=== PATIENT | female | born 1985 | race Caucasian/White ===

== ENCOUNTER 2020-12-09 10:45 | Inpatient (IN) | payer OTHER, SELFPAY ==
[2020-12-09] VITALS (21 sets, daily range): BP systolic 108–152; BP diastolic 49–98; PULSE 73–109; RESP 15–18; TEMP 35.8–37.3; O2SAT 95–100; BMI 31.8
[2020-12-09] MEDS: Lactated Ringers 1,000 ML 999 ML IV (10:45)
[2020-12-09 11:02] LABS: Hematocrit 40.4 % (37-47); Hemoglobin 13.6 g/dL (12.0-15.0); Mean Corp Hgb Conc 33.7 g/dL (32-36); Mean Corpuscular Hgb 29.6 pg (27.0-32.0); Mean Platelet Vol. 10.1 fl (6.2-12.0); Platelet Count 358 K/mm3 (150-450); RBC Distribution Width SD 44.5 fl (35.1-43.9); Red Blood Count 4.59 M/mm3 (4.2-5.4); White Blood Count 14.6 K/mm3 (4.4-11.0)
[2020-12-09 11:15] LABS: Bedside Glucose 85 mg/dL (70-110)
[2020-12-09 11:16] LABS: AST(SGOT) 18 U/L (15-37); Alanine Aminotransfer ALT/SGPT 22 U/L (13-56); Creatinine, Serum 0.64 mg/dL (0.55-1.02); EST Glomerular Filtration Rate 113 mL/min (>60); Est Glom Filt Rate - Afr Amer 137 mL/min (>60); Estimated Creatinine Clearance 137.13 ml/min; LDH 193 U/L (84-246); Uric Acid 4.3 mg/dL (2.6-6.0)
[2020-12-09 11:30] LABS: International Normalized Ratio 0.9; Prothrombin Time (Protime)PT. 11.6 SECONDS (11.7-14.9)
[2020-12-09 11:31] LABS: Fibrinogen 556 mg/dl (203-444); Partial Thromboplast Time 24.6 Seconds (24.1-36.2)
[2020-12-09] MEDS: Sodium Citrate/Citric Acid 30 ML UDC PO (11:42)
[2020-12-09] MEDS: Acetaminophen 500 MG Tablet 1000 MG PO ×2 (11:45→18:42)
[2020-12-09] MEDS: Cefazolin 2 GM in 0.9% Normal Saline 100 ML IV (11:50)
--- NOTE | 2020-12-09 12:05 | PCM.HP.OB ---
HPI - General General Date of Admission: 12/09/20 HPI Narrative MAURILIO KIDD, is a 35 high risk level 1 para 0 who presents at 39-5/7 weeks gestation complaining contractions. The contractions that started at 4 AM and got more more intense. She arrived to labor and delivery. She denied any vaginal bleeding or leaking of fluid. She denies headache or visual changes. Maternal Data Information Final ALDO: 12/11/20 Final ALDO Source: [place] <20 weeks Gestational age: 39 5/7 [facility] Medical History (Updated 12/09/20 @ 12:[address] Ling Espinoza MD) Depression Gestational diabetes Home Medications [id number] fumarate-FA [] tab PO 12/09/20 [History Last Taken 12/08/20] Allergy/AdvReac Type Severity Reaction Status Date / Time aspirin Allergy Other Verified 12/09/20 09:42 Family History (Updated 12/09/20 @ 11:10 by Anne Marie Wilkes) Sister Mental developmental delay Social History Smoking Status: Never smoker History Elective abortions Hx Para 0 Spontaneous abortions Hx # Term Pregnancies Ectopic pregnancies Hx # Pregnancies Multiple births # of living children NST FHR Rate Baby A Baseline: normal Variability:: Moderate Accelerations:: 15 x 15 Decelerations:: Variable (for up to 90 sec. Michael in 60s-80s at times) FHR Category:: Category II Uterine Activity:: ctxs q 3-5 min ROS Constitutional Constitutional: Denies fatigue, fever(s) or malaise Eyes Eyes: Denies change in vision ENT HEENT: Denies dizziness or headache(s) Cardiovascular Cardiovascular: Denies chest pain, dyspnea or lightheadedness Respiratory/Chest Respiratory/Chest: Denies cough or dyspnea Gastrointestinal Gastrointestinal: Denies change in bowel habits Genitourinary Genitourinary: Denies burning urination or genital lesions Integumentary Integumentary: Denies rash Neurologic Neurologic: Denies confusion, dizziness, headache(s), numbness or weakness Vital Signs Vital Signs Vital Signs: 12/09/20 09:32 12/09/20 09:47 12/09/20 10:02 Pulse Rate 93 90 87 Blood Pressure 144/98 H 122/70 H 134/88 H BP Systolic 144 122 134 BP Diastolic 98 70 88 12/09/20 11:27 12/09/20 11:42 Pulse Rate 109 H 104 H Blood Pressure 152/92 H 138/83 H BP Systolic 152 138 BP Diastolic 92 83 Weight Weight: 103.419 kg Body Mass Index (BMI) 31.8 Physical Exam Const alert and no apparent distress General Appearance: cooperative HEENT normocephalic Resp normal respiratory effort Cardio regular rate GI soft to palpation GI Narrative: gravid, nontender, appropriate for gestational age Extremity no calf tenderness General Extremity: edema Skin no wounds Rashes: No rashes noted Psych activity/motor behavior normal Labs Labs Labs: Blood Type Pending Antibody Screen Pending Hct 40.4 % (37-47) Hgb 13.6 g/dL (12.0-15.0) Assessment & Plan (1) 39 weeks gestation of : (2) High-risk , primigravida of advanced maternal age: (3) Variable heart rate decelerations, antepartum: PLAN: Risk benefits and alternatives and personnel involved to primary section were discussed with the patient, her questions were answered to her satisfaction and she desired to proceed. Her partner was present in the room for the discussion and opportunity for him to ask questions was given as well. Indication for is deep variable decelerations, remote from delivery. Patient cervix was checked) she was transferred to the operating room and she still remained . Consent was signed. (4) Maternal obesity syndrome in third trimester: (5) BMI 31.0-31.9,adult:
--- NOTE | 2020-12-09 12:09 | EX.PCM.OBRPT ---
Assessment & Plan (1) Variable heart rate decelerations, antepartum: (2) Maternal obesity syndrome in third trimester: (3) BMI 31.0-31.9,adult: (4) High-risk , primigravida of advanced maternal age: (5) 39 weeks gestation of : Maternal Data Information Final ALDO: 12/11/20 Gestational age: 39 5/7 Details Operative Information Date of Procedure: 12/09/20 Pre-Operative Diagnosis: Variable decelerations, persistent category 2 heart tracing remote from delivery Post-Operative Diagnosis: same + oligohydramnios Classification: DALE Procedure Type: low transverse papeterie table assembler #1: Zen Diaz papeterie table assembler #2: MARI COLEY Type of Anesthesia: Spinal Anesthesiologist: Gurwinder Pollock Special Medications: duramorph Antibiotic Given: Ancef 2 grams IV x1 Drain: Rodriguez to straight drain Estimated Blood Loss: 800 Fluids Replaced: 1000 Procedure Start Time: 12:15 Procedure Stop Time: 13:03 Time of Delivery: 12:18 Findings Description of Procedure: The patient was taken to the operating room. She was prepped and draped in the dorsal supine position with a leftward tilt. A Pfannenstiel skin incision was made approximately 2 cm above the symphysis pubis and carried through to underlying layer fascia with the scalpel. The fascia was incised incised in the midline and extended laterally with the Parrish scissors. The fascia was dissected off the rectus muscles with blunt and sharp dissection. The rectus muscles were in the midline and the peritoneum was entered bluntly. The peritoneal incision was stretched and the bladder blade was placed. The uterine incision was made in a low transverse fashion with the scalpel and extended superiorly and inferiorly with blunt dissection. After the hysterotomy was made, the amniotic membranes were ruptured. No significant fluid returned. This confirmed oligohydramnios.. The infant's head was brought to the incision in the flexed position and delivered without difficulty. The remainder of the was delivered with gentle traction and fundal pressure in the standard fashion. There was some terminal meconium noted trailing from the anus as the delivered. The mouth and nares were bulb suctioned. The cord was clamped and cut as the was stimulated. The was handed off to the waiting nursing staff. The placenta was delivered with fundal massage and gentle traction in the standard fashion. The uterus was exteriorized and cleared of all clots and debris. The cervix was dilated with a ring forcep. The uterine incision was closed with #1 Vicryl in a running locked fashion. A second layer of the same suture was used in an imbricating fashion. The incision was examined and was found to be hemostatic. The uterus was placed back into the peritoneal cavity and hemostasis was again confirmed. The rectus muscles were examined and any bleeding was Bovie cauterized. The parietal peritoneum and rectus muscles were closed en bloc with an 0 Vicryl running suture. The surgical teams outer gloves were then changed. The rectus fascia was examined and any bleeding was Bovie cauterized and the rectus fascia was closed with 1 Vicryl suture in a running standard fashion. The subcutaneous tissue was examining and any bleeding was Bovie cauterized. The subcutaneous tissue was reapproximated with 3-0 Vicryl suture. The skin was closed in a subcuticular fashion by the MIGRANT LEADER with me present in the labor and delivery suite. I performed the remainder of the procedure with assistance. All sponge, lap, and needle counts were correct. The patient was taken to her room for recovery in a stable condition. Presentation: Positive for Vertex Amniotic Membrane Rupture Type: Artificial Amniotic Fluid Description: Clear (minimal drops of fluid) Placental Delivery Description: Spontaneous Placenta Disposition: Sent to Pathology Cord Vessel Description: 3 Vessels Cord Entanglement: Around neck x 1, tight Nuchal Cord Compression: Without compression Cord Gases: ABG and VBG A Gender: Male (collette) (1 minute): 8 (5 minute): 9 Delayed Cord Clamping: No Complications Complications: none Admit VTE Documentation VTE Present on Admission: No VTE Mechan Device Prophylaxis: SCD's VTE Pharm Prophylaxis Ordered: No Reason Prophylaxis Not Ordered: Procedure Not Indicated
--- NOTE | 2020-12-09 12:18 | PLAC_PTH ---
PATIENT: MAURILIO KIDD LOC: [facility] U#:[id number] AGE/SX: 35/F ROOM: [facility] RE12/09/[address]: Becky Menchaca CNM : 1985 BED: 1 DIS: 12/11/2020 SPEC #: [id number] RECD: 12/09/20 18:45 STATUS: MARCY JAY #: [id number] TEJAS: 12/09/20 12:[address]: Becky Menchaca DEPT: SURGICAL PATHOLOGY RECD BY: Clementina Iverson Tissues: Placenta, NOS Procedures: Surgery Specimen Level V HEADER OPERATION: section PRE-OP DIAGNOSIS: Oligohydramnios TISSUE SUBMITTED: Placenta MICROSCOPIC DIAGNOSIS Donovan placenta (347 gm): Umbilical cord ? trivascular with no inflammation. Placental membranes ? no pathologic change. Placental disc ? remote infarct, focal nonspecific chronic villitis, Ridge-Elie change and mildly increased intraparenchymal fibrin plaques. AM:lazaro 12/12/2020 MICROSCOPIC DESCRIPTION Slides are reviewed. GROSS DESCRIPTION SPECIMEN: PLACENTA / CLINICAL INFORMATION: A. Weight: 2.725 kg B. Gestational Age: 39 weeks C. Sex: Male PLACENTAL WEIGHT (POST FIXATION): 347 gm PLACENTAL DIMENSIONS: 18 x 14 x 2.5 cm PLACENTAL SHAPE: Usual ovoid PLACENTAL WEIGHT FOR GESTATIONAL AGE: Within 10-99th percentile MEMBRANES - Present A. Insertion: Marginal B. Site of rupture from edge: 6 cm from edge of placental disc C. Color of membrane: Allan-avila D. Abnormalities: None UMBILICAL CORD - Present A. Color: Allan-avila B. Insertion: The umbilical cord is inserted in the membranes, velamentous insertion C. Length: 32 cm D. Diameter: 1 cm E. Number of vessels: Three F. Abnormalities: The membranes are disrupted at the site of insertion of umbilical cord. PLACENTAL DISC - Present A. Color of surface: Allan-avila B. surface abnormalities: None C. Maternal cotyledons: Intact with minimal tears D. Attached retro placental clot: No clot E. Cut surface: Dark red and spongy F. Lesions: Sections reveal a allan, indurated area in the peripheral portion of the placenta measuring 2 x 2 x 0.5 cm. G. Separate clot: Absent SECTIONS SUBMITTED: 1. Membrane roll 2. Cord, maternal end 3. Cord, end, lesion 4. Placental disc, and maternal surfaces 5. Placental disc, and maternal surfaces 6. Placental disc, and maternal surfaces SJ:lazaro 12/11/20 TC:3 CPT: 33334
[2020-12-09] MEDS: Oxytocin 30 units/NS 500 ml 30 UNITS/500 ML IV.SOLN 167 UNITS IV (13:30)
[2020-12-09] MEDS: Ketorolac 30 MG/ML Syringe IV ×2 (13:40→19:52)
[2020-12-09 14:20] LABS: Bedside Glucose 86 mg/dL (70-110)
[2020-12-09] MEDS: Lactated Ringers 1,000 ML 100 ML IV (16:52)
[2020-12-09 18:47] LABS: Pathology Specimen OB SEE PATHOLOGY REPORT
[2020-12-09] MEDS: 0.9% Saline Lock 10 ML Syringe IV (19:52)
[2020-12-10] MEDS: Acetaminophen 500 MG Tablet 1000 MG PO ×4 (00:55→19:56)
[2020-12-10] MEDS: 0.9% Saline Lock 10 ML Syringe IV ×2 (02:44→09:45)
[2020-12-10] MEDS: Ketorolac 30 MG/ML Syringe IV ×2 (02:44→09:45)
[2020-12-10 03:05] VITALS: BP 128/75; PULSE 96; RESP 18; TEMP 36.7; O2SAT 95
[2020-12-10 04:46] LABS: Hematocrit 34.4 % (37-47); Hemoglobin 11.3 g/dL (12.0-15.0); Mean Corp Hgb Conc 32.8 g/dL (32-36); Mean Corpuscular Hgb 29.7 pg (27.0-32.0); Mean Corpuscular Volume 90.3 fL (81-99); Mean Platelet Vol. 9.6 fl (6.2-12.0); Platelet Count 257 K/mm3 (150-450); RBC Distribution Width CV 13.9 % (11.6-14.6); RBC Distribution Width SD 45.5 fl (35.1-43.9); Red Blood Count 3.81 M/mm3 (4.2-5.4); White Blood Count 10.9 K/mm3 (4.4-11.0)
[2020-12-10 08:00] VITALS: BP 121/73; PULSE 86; RESP 16; TEMP 36.6; O2SAT 95
--- NOTE | 2020-12-10 08:24 | PCM.PN.OB ---
Subjective Subjective Pain controlled. Doing well. Objective Data Objective Data Vital Signs: Vital Signs Temp Pulse Resp BP Pulse Ox 97.9 F 86 16 121/73 H 95 12/10/20 08:00 12/10/20 08:00 12/10/20 08:00 12/10/20 08:00 12/10/20 08:00 Oxygen Delivery Method Room Air Weight: 228 lb Body Mass Index (BMI) 31.8 Intake & Output: Intake and Output for Last 24 Hours 12/08/20 12/09/20 12/10/20 23:59 23:59 23:59 Intake Total 2356.67 / 2356.67 Output Total 2150 / 2150 1000 / 1000 Balance 206.67 / 206.67 -1000 / -1000 Lab / Micro Data Result Diagrams: 12/10/20 04:35 12/09/20 10:45 Labs: Laboratory Results - last 24 hr 12/09/20 12/09/20 12/09/20 10:45 10:45 10:45 WBC 14.6 H RBC 4.59 Hgb 13.6 Hct 40.4 MCV 88.0 MCH 29.6 MCHC 33.7 RDW Std Deviation 44.5 H RDW Coeff of Sanjeev 14.0 Plt Count 358 MPV 10.1 PT INR APTT Fibrinogen Creatinine 0.64 Estim Creat Clear Calc 137.13 Est GFR (MDRD) Af Amer 137 Est GFR (MDRD) Non-Af 113 Uric Acid 4.3 AST 18 ALT 22 Lactate Dehydrogenase 193 POC Glucose Blood Type B POSITIVE Antibody Screen NEGATIVE 12/09/20 12/09/20 12/09/20 10:45 11:10 13:51 WBC RBC Hgb Hct MCV MCH MCHC RDW Std Deviation RDW Coeff of Sanjeev Plt Count MPV PT 11.6 L INR 0.9 APTT 24.6 Fibrinogen 556 H Creatinine Estim Creat Clear Calc Est GFR (MDRD) Af Amer Est GFR (MDRD) Non-Af Uric Acid AST ALT Lactate Dehydrogenase POC Glucose 85 86 Blood Type Antibody Screen 12/10/20 04:35 WBC 10.9 RBC 3.81 L Hgb 11.3 L Hct 34.4 L MCV 90.3 MCH 29.7 MCHC 32.8 RDW Std Deviation 45.5 H RDW Coeff of Sanjeev 13.9 Plt Count 257 MPV 9.6 PT INR APTT Fibrinogen Creatinine Estim Creat Clear Calc Est GFR (MDRD) Af Amer Est GFR (MDRD) Non-Af Uric Acid AST ALT Lactate Dehydrogenase POC Glucose Blood Type Antibody Screen Micro: Microbiology 12/09/20 11:25 Mucosa - Nose SARS-CoV-2 Antigen (Rapid) - Final Physical Exam Const alert, oriented x3 and no apparent distress HEENT normocephalic GI soft to palpation, non-tender and non-distended GI Narrative: fundus firm, mid & below umbilicus Incision - bandage c/d/i Extremity normal to inspection and no calf tenderness Assessment & Plan (1) Delivery by section: COMMENT: POD#1 PLAN: Heme - HDS, CBC reviewed GI - ADAT - adequate UOP Pain -continue regimen Routine care
[2020-12-10] MEDS: Senna/Docusate Sodium 1 Tablet PO (09:44)
[2020-12-10 13:00] VITALS: BP 125/77; PULSE 84; RESP 18; TEMP 36.5
[2020-12-10] MEDS: Naproxen 500 MG Tablet PO ×2 (15:36→23:43)
[2020-12-10 20:00] VITALS: BP 129/90; PULSE 93; RESP 20; TEMP 36.8; O2SAT 97
[2020-12-11 02:00] VITALS: BP 132/88; PULSE 92; RESP 16; TEMP 36.3; O2SAT 98
[2020-12-11] MEDS: Acetaminophen 500 MG Tablet 1000 MG PO ×2 (02:37→08:29)
--- NOTE | 2020-12-11 08:26 | PCM.PN.BLA ---
Progress Note pain well controlled, average lochia. + flatus, no BM. Physical Exam Const alert General Appearance: cooperative GI GI Narrative: soft, moderate distention, fundus firm, appropriately tender. Abdominal bandage clean dry and intact Assessment & Plan Assessment/Plan (1) Delivery by section: PLAN: Postoperative day #2 status post primary section for persistent decelerations remote from delivery. Discussed with the patient oligohydramnios diagnosis and reviewed operative course. Reviewed normal course and postop recommendations. Patient desires discharge home today. is breast-feeding and doing well.
--- NOTE | 2020-12-11 08:27 | DS.PCM_ITS ---
Providers Date of Admission: 12/09/20 Reason For Visit: LABOR AND DELIVERY Diagnosis Discharge Diagnosis (1) Delivery by section: Status: Acute Medications at Discharge Home Medications tab PO 12/09/20 ibuprofen 600 mg PO Q6H PRN #60 tablet 12/11/20 Hospital Course Operations - (Primary low transverse section Via Pfannenstiel skin incision) Weight / BMI Weight Weight: 103.419 kg Body Mass Index (BMI) 31.8 ABG / Lab / Microbiology Data Result Diagrams: 12/10/20 04:35 12/09/20 10:45 Microbiology: Microbiology 12/09/20 11:25 Mucosa - Nose SARS-CoV-2 Antigen (Rapid) - Final D/C Instructions Discharge Diet: No restrictions May resume sexual activity in: 4-6 weeks Lifting Restrictions: 20 pounds Additional Activity Instructions: Nothing in the vagina for 4-6 weeks. You may return to work/school in 6 weeks. Call your doctor if your incision/area has: Continuous Slow Oozing, Sudden Increased Bleeding, Increased Pain/ Swelling, Increased Redness and Foul Smelling Discharge Call your doctor if you observe: Fever of 101 or Higher and Using more than 1 p ad per hour (for 2 hours) Suture Line Care: Avoid Pulling/Pushing and Avoid Pinching/Bending Cleanse incision/area with: Keep Dressing Clean & Dry Please Follow Up With: Ling Espinoza MD When: Call to make an appointment for an incision check in 1-2 [phone]. You will need a post check in 6 weeks. Meaningful Use Info Meaningful Use Diagnoses (Choose all that apply): None applicable Discharge Plan Admission Admit Date/Time: 12/09/20 10:45 Primary Reason for Your Visit: Labor, with delivery Attending Provider: Becky Menchaca Instructions Patient Instructions: After a Discharge Orders/Prescriptions Prescriptions: New ibuprofen [ibuprofen] 600 MG tablet 600 mg PO Q6H PRN (Reason: Pain) Qty: 60 RF: 1 Continued 28-800 mg-mcg Tablet PO RF: 0 Disposition Disposition (needs filled in before D/C Order can be placed): Home, Self Care
[2020-12-11] MEDS: Naproxen 500 MG Tablet PO (08:29)
[2020-12-11 08:45] VITALS: BP 135/82; PULSE 75; RESP 16; TEMP 36.6; O2SAT 97
[2020-12-11] MEDS: Senna/Docusate Sodium 1 Tablet PO (10:27)
--- NOTE | 2020-12-11 10:57 | NURSING ---
Addendum entered by Ophelia Tafoya 12/11/20 10:59: will continue to monitor; pt states no increase in pain level Original Note: pt up to bathroom and large clot noted; assisted back to bed; fundus firm u/1 and no further clots or bleeding noted
[2020-12-11 11:00] VITALS: BP 151/80; PULSE 83; RESP 18; O2SAT 98
[2020-12-11 11:02] VITALS: BP 134/85; PULSE 80; RESP 16; O2SAT 97
== END 2020-12-11 14:10 | disposition home or self-care (01) | DRG 787 ==
LOC: WPOUT 10:49 → WP 10:49
PROVIDERS: Advanced Practice Midwife; Obstetrics & Gynecology; Admitting Provider Advanced Practice Midwife; Visit Provider Advanced Practice Midwife
DX: O76 Abnormality in fetal heart rate and rhythm complicating labor and delivery (principal); O41.03X0 Oligohydramnios, third trimester, not applicable or unspecified; O77.0 Labor and delivery complicated by meconium in amniotic fluid; O69.81X0 Labor and delivery complicated by cord around neck, without compression, not applicable or unspecified; O99.214 Obesity complicating childbirth; E66.9 Obesity, unspecified; O24.420 Gestational diabetes mellitus in childbirth, diet controlled; Z3A.39 39 weeks gestation of pregnancy; Z37.0 Single live birth
CPT/HCPCS: 59050; 82565; 82962; 83615; 84450; 84460; 84550; 85027; 85384; 85610; 85730; 86850; 86900; 86901; 87426; 88307; 99218; 99251; J7120; A4216; G0378; G0463; J2405